=== PATIENT | male | born 1960 | race Caucasian/White ===

== ENCOUNTER 2018-01-13 13:14 | Inpatient (IN) | payer SELFPAY ==
[~2018-01-13] VITALS: Ht 175.2 cm; Wt 85.3 kg
--- NOTE | ~2018-01-13 | ST ---
[place], [place] EXERCISE STRESS TEST REPORT NAME: BRANT SWAIN UNIT #: [id number] ROOM: 405 DOCTOR: LIO OLVERA,DESTINY BIRTHDATE: 60 DOS: 01/14/2018 REASON FOR TEST: Evaluation of chest pain. REFERRING PHYSICIAN: Dr. Georges. PHYSICAL EXAMINATION NECK: Supple. LUNGS: Clear anteriorly. HEART: Regular rhythm. PROTOCOL: Bruno protocol. Total stress time 10 minutes. Maximum heart rate 147, which is 90% of targeted heart rate. Peak blood pressure 190/88, adequate response. Total mets, 10.9 mets. Lal treadmill score +10. Symptoms: The patient is chest pain free. ELECTROCARDIOGRAM: Resting EKG showed sinus rhythm. Stress EKG, no ischemia, no arrhythmias. CONCLUSION: Clinically, the patient is chest pain free. EKG, nonischemic. POST-STRESS COMPLICATIONS: None. DESTINY VACA MD CM:STRESS:EXERCISE STRESS TEST REPORT [id number] DESTINY VACA MD
[~2018-01-13 13:14] MED LIST: ASPIRIN325 M2 PO; BAYER BACK & BODY PO; FLOMAX0.4 MG PO; HYDROCODONE BIT1 T11 PO; MEDROL DOSEPAK4 MG PO; NKHM; VICODIN 500 MG-1 TAB PO; ZOFRAN ODT4 MG SL
[2018-01-13 13:21] VITALS: BP 167/106
[2018-01-13 14:03] LABS: BASO # 0.1 10*3/uL (0.0-0.1); BASO % 0.9 % (0.0-1.0); EOS # 0.1 10*3/uL (0.0-0.4); EOS % 1.4 % (1.0-4.0); HEMATOCRIT 55.8 % (42.0-52.0); HEMOGLOBIN 18.8 g/dl (14.0-18.0); LYMPH % 17.7 % (27.0-41.0); MEAN CELL VOLUME 90.1 fl (80.0-94.0); MEAN CORPUSCULAR HGB 30.4 pg (27.0-31.0); MEAN CORPUSCULAR HGB CONC 33.7 g/dl (33.0-37.0); MEAN PLATELET VOLUME 9.8 fl (9.6-12.3); MONO # 0.5 10*3/uL (0.1-1.0); MONO % 9.6 % (3.0-9.0); NEUT # 3.9 10*3/uL (2.3-7.9); PLATELET COUNT AUTOMATED 238 10*3/uL (130-400); RED BLOOD COUNT 6.19 10*6/uL (4.50-5.90); RED CELL DISTRI WIDTH 12.9 % (0-14.5); WHITE BLOOD COUNT 5.6 10*3/uL (4.8-10.8)
[2018-01-13 14:12] LABS: ACT PARTIAL THROMBO TIME 24.6 SECONDS (20.8-31.5)
[2018-01-13 14:20] LABS: ALBUMIN 4.1 gm/dl (3.1-4.5); ALKALINE PHOSPHATASE 72 U/L (45-117); BUN 16 mg/dl (7-24); CHLORIDE 104 mmol/L (98-107); CREATININE 1.09 mg/dL (0.70-1.30); POTASSIUM 4.7 mmol/L (3.5-5.1); SGOT/AST 23 IU/L (3-35); SGPT/ALT 50 U/L (12-78); SODIUM 139 mmol/L (136-145); TOTAL PROTEIN 7.6 gm/dL (6.4-8.2)
[2018-01-13 14:34] LABS: TROPONIN I < 0.015 ng/ml (<0.045)
[2018-01-13 15:00] VITALS: BP 141/92
[2018-01-13 16:00] VITALS: BP 134/97
[2018-01-13 16:15] VITALS: BP 146/94
[2018-01-13 20:00] VITALS: BP 147/94
[2018-01-14] VITALS: BP 114/73
[2018-01-14 07:07] LABS: BASO # 0.1 10*3/uL (0.0-0.1); BASO % 1.1 % (0.0-1.0); EOS # 0.2 10*3/uL (0.0-0.4); HEMATOCRIT 53.7 % (42.0-52.0); HEMOGLOBIN 18.2 g/dl (14.0-18.0); LYMPH # 1.6 10*3/uL (1.3-4.4); LYMPH % 28.6 % (27.0-41.0); MEAN CELL VOLUME 89.9 fl (80.0-94.0); MEAN CORPUSCULAR HGB 30.5 pg (27.0-31.0); MEAN CORPUSCULAR HGB CONC 33.9 g/dl (33.0-37.0); MONO # 0.7 10*3/uL (0.1-1.0); MONO % 11.9 % (3.0-9.0); NEUT # 3.1 10*3/uL (2.3-7.9); NEUT % 54.7 % (47.0-73.0); PLATELET COUNT AUTOMATED 237 10*3/uL (130-400); RED BLOOD COUNT 5.97 10*6/uL (4.50-5.90); RED CELL DISTRI WIDTH 12.9 % (0-14.5); WHITE BLOOD COUNT 5.6 10*3/uL (4.8-10.8)
[2018-01-14 07:30] LABS: ALBUMIN 3.9 gm/dl (3.1-4.5); BUN 20 mg/dl (7-24); CHLORIDE 104 mmol/L (98-107); POTASSIUM 3.8 mmol/L (3.5-5.1); SODIUM 137 mmol/L (136-145)
[2018-01-14 07:40] LABS: ALKALINE PHOSPHATASE 67 U/L (45-117); CHOLESTEROL 244 mg/dL (<200); CREATININE 1.05 mg/dL (0.70-1.30); FREE T4 0.98 ng/dl (0.76-1.46); HDL CHOLESTEROL 46 mg/dl (40-60); LDL CHOLESTEROL 166 mg/dL (9-159); PHOSPHOROUS 3.3 mg/dL (2.5-4.9); SGOT/AST 21 IU/L (3-35); SGPT/ALT 45 U/L (12-78); TOTAL PROTEIN 6.9 gm/dL (6.4-8.2); TRIGLYCERIDES 162 mg/dl (<150); VLDL CHOLESTEROL 32 mg/dL (6-40)
[2018-01-14 08:00] VITALS: BP 128/50
[2018-01-14 09:00] LABS: VITAMIN D, 25-HYDROXY 17.5 ng/mL (30-100)
[2018-01-14 12:00] VITALS: BP 139/91; BP 141/89
[2018-01-14 16:00] VITALS: BP 141/86
[2018-01-14] MEDS ORDERED: ATORVASTATIN CA40 M1 PO (16:52)
[2018-01-14] MEDS ORDERED: VITAMIN D-32000 UNIT PO (16:52)
== END 2018-01-14 17:29 | disposition home or self-care (01) | DRG 206 ==
LOC: ED 13:14 → 4E 15:33 → EDHOLD 15:33 → 4E 15:50
PROVIDERS: Emergency Medicine; Registered Nurse
PROC: 4A02XM4 Measurement of Cardiac Total Activity, External Approach (ICD-10-PCS; principal; 2018-01-14)
DX: M94.0 Chondrocostal junction syndrome [Tietze] (principal); F17.210 Nicotine dependence, cigarettes, uncomplicated; I10 Essential (primary) hypertension; R51 Headache; Z71.6 Tobacco abuse counseling; Z87.442 Personal history of urinary calculi; Z82.49 Family history of ischemic heart disease and other diseases of the circulatory system

== ENCOUNTER → 2018-01-15 | Outpatient (CLI) | payer MEDICAID ==
[~2018-01-15] MED LIST changes: +ATORVASTATIN CA40 M1 PO; +VITAMIN D-32000 UNIT PO
[2018-01-15 12:59] VITALS: BP 144/90
[2018-01-15 13:21] VITALS: BP 141/99
== END | disposition home or self-care (01) ==
LOC: PHLEB 12:52
DX: D45 Polycythemia vera (principal)

== ENCOUNTER 2018-09-28 14:08 | Emergency (ER) | payer OTHER ==
[~2018-09-28] VITALS: Wt 83.9 kg
[2018-09-28 15:15] LABS: BASO # 0.1 10*3/uL (0.0-0.1); BASO % 1.2 % (0.0-1.0); EOS # 0.3 10*3/uL (0.0-0.4); EOS % 4.7 % (1.0-4.0); HEMATOCRIT 56.3 % (42.0-52.0); LYMPH # 1.1 10*3/uL (1.3-4.4); LYMPH % 16.9 % (27.0-41.0); MEAN CELL VOLUME 91.5 fl (80.0-94.0); MEAN CORPUSCULAR HGB 30.9 pg (27.0-31.0); MEAN CORPUSCULAR HGB CONC 33.7 g/dl (33.0-37.0); MONO # 0.8 10*3/uL (0.1-1.0); MONO % 12.4 % (3.0-9.0); NEUT # 4.2 10*3/uL (2.3-7.9); NEUT % 64.5 % (47.0-73.0); PLATELET COUNT AUTOMATED 220 10*3/uL (130-400); RED BLOOD COUNT 6.15 10*6/uL (4.50-5.90); RED CELL DISTRI WIDTH 12.3 % (0-14.5); WHITE BLOOD COUNT 6.4 10*3/uL (4.8-10.8)
[2018-09-28 15:36] LABS: BUN 17 mg/dl (7-24); CHLORIDE 106 mmol/L (98-107); CREATININE 1.17 mg/dL (0.70-1.30); POTASSIUM 3.7 mmol/L (3.5-5.1); SODIUM 137 mmol/L (136-145)
[2018-09-28] MEDS ORDERED: TESSALON PERLE100 MG PO (15:51)
== END 2018-09-28 16:35 | disposition home or self-care (01) ==
LOC: ED 14:08
PROVIDERS: Internal Medicine
DX: J06.9 Acute upper respiratory infection, unspecified (principal); I10 Essential (primary) hypertension

== ENCOUNTER → 2025-04-18 | Outpatient (CLI) | payer MEDICARE, MEDICAID ==
[~2025-04-18] MED LIST changes: +ASPIRIN ADULT L81 M2 PO; +ATORVASTATIN CA80 M1 PO; +CLOPIDOGREL75 MG PO; +TESSALON PERLE100 MG PO
== END | disposition home or self-care (01) ==
LOC: RESCLI 09:20
PROVIDERS: ATTEND Internal Medicine
DX: I63.9 Cerebral infarction, unspecified (principal); G47.00 Insomnia, unspecified; E78.5 Hyperlipidemia, unspecified; Z79.82 Long term (current) use of aspirin; Z79.899 Other long term (current) drug therapy; Z82.49 Family history of ischemic heart disease and other diseases of the circulatory system

== ENCOUNTER 2025-05-01 13:21 | Emergency (ER) | payer MEDICARE, MEDICAID ==
[~2025-05-01] VITALS: Ht 175.2 cm; Wt 90.7 kg
[2025-05-01 14:27] LABS: BASO # 0.0 10*3/uL (0.0-0.1); BASO % 0.5 % (0.0-1.0); BUN 12 mg/dl (9-23); CPK 73 U/L (34-171); EOS # 0.1 10*3/uL (0.0-0.4); EOS % 0.9 % (1.0-4.0); ETHYL ALCOHOL < 3.0 mg/dl (<3); MEAN CELL VOLUME 92.4 fl (80.0-94.0); MEAN CORPUSCULAR HGB 30.9 pg (27.0-31.0); MEAN PLATELET VOLUME 10.0 fl (9.6-12.3); MONO # 0.6 10*3/uL (0.1-1.0); MONO % 9.8 % (3.0-9.0); NEUT # 4.9 10*3/uL (2.3-7.9); NEUT % 75.3 % (47.0-73.0); NUCLEATED RED BLOOD CELL 0.0 % (0.0-0.0); NUCLEATED RED BLOOD CELL 0.0 10*3/uL (0.0-0.0); PLATELET COUNT AUTOMATED 231 10*3/uL (130-400); RED CELL DISTRI WIDTH 12.8 % (0-14.5)
[2025-05-01] MEDS ORDERED: ASPIRIN 325 MG ENTERIC COATED PO ONE (14:55)
== END 2025-05-01 16:26 | disposition home or self-care (01) ==
LOC: ED 13:21
PROVIDERS: Emergency Medicine
DX: M62.830 Muscle spasm of back (principal); R20.2 Paresthesia of skin; M79.601 Pain in right arm; M79.602 Pain in left arm; F10.90 Alcohol use, unspecified, uncomplicated; Z90.89 Acquired absence of other organs; Z86.73 Personal history of transient ischemic attack (TIA), and cerebral infarction without residual deficits; Z98.890 Other specified postprocedural states; Y90.9 Presence of alcohol in blood, level not specified